=== PATIENT | female | born 1965 | race Caucasian/White ===

== ENCOUNTER → 2019-08-18 | Outpatient (CLI) | payer OTHER ==
[2019-08-18 11:35] VITALS: BP 121/77; PULSE 57; RESP 18; TEMP 97.8
--- NOTE | 2019-08-18 12:52 | P.HPOB ---
History of Present Illness H&P Date: 08/18/19 Chief Complaint: The patient is here for her routine gynecologic exam and ma mmogram. This is a 54-year-old G0 with an LMP of 2009. The patient is complaining of intermittent vulvar pruritus on the right side toward the posterior aspect of the vulva. She states she has noticed this about 4 months. She occasionally notices a clear piece of skin that comes off when she scratches. She denies any pain. She denies vaginal discharge or vaginal odor. She has been experiencing hot flashes over the past 2 years and these have been stable and mostly at night. She has also noticed infrequently a slight bulge in the vagina and feels like she has touched something coming to the vaginal opening. She has noticed this mostly when she has been doing heavy repetitive lifting at work and then she occasionally notices this when she gets home. Review of Systems She has gained about 20 pounds over the past 5 years. She denies respiratory, cardiac, or GI problems. Past Medical History Past Medical History: GERD/Reflux, Hypertension, Thyroid Disorder Additional Past Medical History / Comment(s): Hypothyroidism. 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 She has been amenorrheic since her ablation in 2009. 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 - Past Family History Father Family Medical History: Coronary Artery Disease (CAD), Diabetes Mellitus Sister(s) Family Medical History: Diabetes Mellitus Maternal Aunt Family Medical History: Cancer Additional Family Medical History / Comment(s): Breast cancer and leukemia Medications and Allergies Home Medications Medication Instructions Recorded Confirmed Type Levothyroxine Sodium [Synthroid] 25 mcg PO DAILY 08/18/19 08/18/19 History Lisinopril-Hctz 20-25 mg 1 tab PO DAILY 08/18/19 08/18/19 History [Zestoretic 20-25] Omeprazole [PriLOSEC] 40 mg PO DAILY 08/18/19 08/18/19 History Allergies Allergy/AdvReac Type Severity Reaction Status Date / Time No Known Allergies Allergy Unverified 08/18/19 11:27 Exam Vital Signs Temp Pulse Resp BP Pulse Ox 08/18/19 11:29 97.8 F 57 L 18 121/77 96 Intake and Output 08/17/19 08/18/19 08/18/19 22:59 06:59 14:59 Other: Weight 137.892 kg Height 5 feet 4-1/2 inches, weight 304 pounds, BMI 51.4. This is a well-developed well-nourished obese white female who is alert and oriented times 3 in no acute distress. HEENT: Within normal limits. NECK: Supple without mass or thyromegaly. CHEST AND LUNGS: Clear to auscultation. HEART: Regular rate and rhythm. BREASTS: Are without mass or discharge. AXILLARY EXAM: Negative for adenopathy. BACK: Negative for CVA tenderness. ABDOMEN: Soft, obese, nontender, without palpable masses. PELVIC EXAM: External genitalia reveals minimal atrophy. There is a lesion that is pale and is somewhat linear measuring approximately 2 cm x 0.4cm near the posterior aspect of the right labia majora. This is not raised and is nontender. There is no significant erythema and the area does not appear excoriated. Cervix and vagina appear normal. The cervix is above average in length and appears nulliparous. At rest there is a grade 2 cervical/uterine prolapse. With Valsalva the cervix approaches the introitus but does not quite reach the introitus. There is no unusual discharge. There is no evidence of cystocele or rectocele.. The uterus is midposition, nongravid size and nontender. There are no palpable adnexal masses or tenderness. RECTAL EXAM: The vaginal exam is negative for mass or tenderness and is negative for occult blood. EXTREMITIES: Nontender. IMPRESSION: 1. 54-year-old menopausal female status post endometrial ablation with mild vasomotor symptoms. 2. Grade 2.5 uterine prolapse with above average cervical length. Minimally symptomatic. 3. 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 This lesion is pruritic to the patient. Differential diagnosis will include vulvar dysplasia, vulvar hyperplasia and a chronic vulvitis. PLAN: 1. Pap smear was performed. 2. Self breast awareness was discussed with the patient. 3. Screening mammogram will be done today. 4. Osteoporosis prevention was discussed. I have stressed the importance of adequate calcium, vitamin D and regular exercise. Recommended amounts of calcium and vitamin D were also discussed. 5. The patient will make an appointment for vulvar biopsy to further evaluate the vulvar lesion. I have stressed the importance of having this done. 6. We have had a long discussion regarding the mild uterine prolapse and above average cervical length. At this time I do not feel surgical treatment is necessary. I have recommended that she try to avoid heavy repetitive lifting. We have discussed negative Valsalva exercises and she was given instructions on this. I have recommended that she try this at times when she notices vaginal pressure or evidence of prolapse. She was instructed to call if she thinks she is having worsening of symptoms. 7. She will return for vulvar biopsy and also in one year and as needed.
--- NOTE | 2019-08-19 11:20 | MM ---
Reason for exam: screening (asymptomatic). Last mammogram was performed 4 years and 10 months ago. History: Patient is postmenopausal and is nulliparous. Family history of breast cancer in maternal aunt at age 40. Physical Findings: A clinical breast exam by your physician is recommended on an annual basis and results should be correlated with mammographic findings. MG 3D Screening Mammo W/Cad Bilateral CC and MLO view(s) were taken. Prior study comparison: October 21, 2014, right breast MG diagnostic mammo RT w CAD. August 06, 2011, bilateral digital screening mammo w/CAD. There are scattered fibroglandular densities. There are benign appearing round calcifications bilaterally. There is chronic nodularity in the right breast. There is no discrete abnormality. Prominent benign left axillary lymph nodes. ASSESSMENT: Benign, BI-RAD 2 RECOMMENDATION: Routine screening mammogram of both breasts in 1 year.
--- NOTE | 2019-08-31 15:22 | P.PN ---
Progress Note - Text Progress Note Date: 08/31/19 OUTPATIENT FOLLOW-UP NOTE TEST(S)/RESULTS: test results from 08/18/2019 include negative Pap smear and benign mammogram. METHOD OF NOTIFICATION: the patient was notified by phone. PATIENT COMMENTS: the patient is happy to hear these results. DIAGNOSIS: negative Pap smear and benign mammogram. DISCUSSION: PLAN: the patient is to return in one year for her annual well woman exam. The patient has a vulvar biopsy scheduled for 09/08/2019.
== END | disposition home or self-care (01) ==
LOC: WWCWWP 10:33
PROVIDERS: ATTEND Obstetrics & Gynecology
DX: Z12.31 Encounter for screening mammogram for malignant neoplasm of breast (principal)
CPT/HCPCS: 77063; 77067

== ENCOUNTER → 2019-09-08 | Day surgery (SDC) | payer OTHER ==
--- NOTE | 2019-09-08 22:29 | WWPCN ---
[facility] - PROCEDURE NOTE DATE OF DICTATION AND DATE OF PROCEDURE: 09/08/2019 PRE-PROCEDURE DIAGNOSIS: Vulvar leukoplakia. POST-PROCEDURE DIAGNOSIS: Vulvar leukoplakia. PROCEDURE: Right vulvar biopsy. SURGEON: Dr. Liu. ANESTHESIA: Local anesthesia. BRIEF HISTORY AND INDICATIONS: This was a 54-year-old G0 with an LMP of 2009 who has been experiencing right posterior vulvar pruritus for approximately 5 months. She was found to have a 2.5 x 0.5 cm area of leukoplakia at the posterior aspect of the right vulva. This area was biopsied. DESCRIPTION OF THE PROCEDURE: The nature of the procedure and indication for the procedure were reviewed with the patient. We discussed possible risks associated with the procedure. After all of her questions were answered, the patient was placed in the lithotomy position. The area was prepped with Betadine solution. Approximately 2 mL of 1% lidocaine was used for local anesthesia. Following determination of adequate anesthesia, a cervical biopsy instrument was used to biopsy the center of the lesion. Silver nitrate sticks were used for hemostasis. An antibiotic ointment was applied. The patient tolerated the procedure well. Estimated blood loss was minimal. There were no complications. Discharge instructions were given to the patient. She was instructed to apply antibiotic ointment such as Neosporin twice a day until the site is healed. If blood is noted, she was instructed to apply pressure. She was instructed to call if she has persistent bleeding, unusual pain, fever or problems. Specimen sent included the single vulvar biopsy. Post-procedure vital signs were blood pressure 134/87, pulse 51, pulse oximeter 95%. MMODL / IJN: [id number] /
[2019-09-10 16:00] VITALS: BP 141/78; PULSE 50; RESP 18; TEMP 97.9
--- NOTE | 2019-09-14 18:16 | P.PN ---
Progress Note - Text Progress Note Date: 09/14/19 OUTPATIENT FOLLOW-UP NOTE TEST(S)/RESULTS: Vulvar biopsy pathology from 09/08/2019 shows squamous hyperplasia without inflammation. METHOD OF NOTIFICATION: The patient was notified by phone. PATIENT COMMENTS: The patient states she had minimal bleeding after the procedure and feels that it is healing well. She continues to have itching in the area. DIAGNOSIS: Benign vulvar biopsy showing squamous hyperplasia DISCUSSION: I have stressed the importance of not over washing and not using too much soap in the area. She will also try to avoid rubbing and scratching the area. I have also recommended wearing looser fitting clothing as well. PLAN: Kenalog 0.1% cream twice a day when necessary. She was instructed to call she's having problems. She was advised to return in one year for her annual well woman exam.
== END ==
LOC: WWCWWP 12:35
PROVIDERS: ATTEND Obstetrics & Gynecology
DX: N90.69 Other specified hypertrophy of vulva (principal)
CPT/HCPCS: 88305

== ENCOUNTER → 2021-08-07 | Outpatient (CLI) | payer OTHER ==
[2021-08-07 09:39] VITALS: BP 149/82; PULSE 61; RESP 17; TEMP 98
--- NOTE | 2021-08-07 10:30 | P.HPOB ---
History of Present Illness H&P Date: 08/07/21 Chief Complaint: The patient is here for her routine gynecologic exam and ma mmogram. This is a 55-year-old G0 with an LMP of 2009. The patient states she had COVID in August 2020. She was hospitalized for 10 days at that time. She states she has recovered. She states that she did have a menstrual period during her Covid illness last year. She has not had any bleeding since then. Review of Systems The patient has gained 11 pounds over the last year. She denies respiratory, cardiac, or G.I. problems. Past Medical History Past Medical History: GERD/Reflux, Hypertension, Renal Disease, Thyroid Disorder Additional Past Medical History / Comment(s): Hypothyroidism. Renal insufficiency after COVID 2020. 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 She has been amenorrheic since her ablation in 2009. History of Any Multi-Drug Resistant Organisms: None Reported Past Surgical History: Cholecystectomy, Tonsillectomy, Uterine Ablation Additional Past Surgical History / Comment(s): Colonoscopy 2013(next after 10yr). Upper endoscopy 2013. Past Psychological History: No Psychological Hx Reported Smoking Status: Never smoker Past Alcohol Use History: None Reported Past Drug Use History: None Reported Additional History: She has been since 1984. 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 - Past Family History Father Family Medical History: Coronary Artery Disease (CAD), Diabetes Mellitus Sister(s) Family Medical History: Diabetes Mellitus Maternal Aunt Family Medical History: Cancer Additional Family Medical History / Comment(s): Breast cancer and leukemia Medications and Allergies Home Medications Medication Instructions Recorded Confirmed Type Levothyroxine Sodium [Synthroid] 25 mcg PO DAILY 08/18/19 08/07/21 History Omeprazole [PriLOSEC] 40 mg PO DAILY 08/18/19 08/07/21 History Furosemide [Lasix] 20 mg PO DAILY 08/07/21 08/07/21 History amLODIPine BESYLATE 5 mg PO DAILY 08/07/21 08/07/21 History Allergies Allergy/AdvReac Type Severity Reaction Status Date / Time No Known Allergies Allergy Unverified 08/07/21 09:34 Exam Vital Signs Temp Pulse Resp BP Pulse Ox 08/07/21 09:36 98 F 61 17 149/82 97 Intake and Output 08/06/21 08/07/21 08/07/21 22:59 06:59 14:59 Other: Weight 142.882 kg Height 5 feet 4 inches, weight 315 pounds, BMI 54.1. This is a well-developed well-nourished obese white female who is alert and oriented times 3 in no acute distress. HEENT: Within normal limits. NECK: Supple without mass or thyromegaly. CHEST AND LUNGS: Clear to auscultation. HEART: Regular rate and rhythm. BREASTS: Are without mass or discharge. AXILLARY EXAM: Negative for adenopathy. BACK: Negative for CVA tenderness. ABDOMEN: Soft, obese, nontender, without palpable masses. PELVIC EXAM: Normal external genitalia with mild atrophy. There is a grade 2 uterine prolapse which seems to be related to a very long cervix. Cervix and vagina otherwise appear normal with mild atrophy. There is no unusual discharge. There is no other prolapse. The uterus is midposition, nongravid size and nontender. There are no palpable adnexal masses or tenderness. Bimanual examination is somewhat limited secondary to her size. RECTAL EXAM: Rectovaginal exam is negative for mass or tenderness and is negative for occult blood. EXTREMITIES: Nontender. IMPRESSION: 1. 55-year-old menopausal female with stable grade 2 uterine prolapse with above average cervical length. This is asymptomatic. 2. One episode of postmenopausal bleeding about 1 year ago. PLAN: 1. Pap smear was deferred since she had a normal one on 08/18/2019. 2. Self breast awareness was discussed with the patient. We have also discussed symptoms associated with inflammatory breast cancer. 3. Screening mammogram will be done today. 4. Because of the postmenopausal bleeding episode last year, we will plan on doing a pelvic ultrasound to look at her endometrial thickness. If endometrial thickening is noted, we will plan on having some type of endometrial sampling. The order slip was given to the patient for the ultrasound. 5. Osteoporosis prevention was discussed. I have stressed the importance of adequate calcium, vitamin D and regular exercise. Recommended amounts of calciu m and vitamin D were also discussed. 6. She has not received a Covid vaccination, but did have Covid in 2020. She understands the CDC recommendation is for vaccination. She will consider this 7. Conservative management for the uterine prolapse. She will call if problems. 8. She was advised to return in one year for her annual well woman exam.
--- NOTE | 2021-08-08 09:40 | MM ---
Reason for Exam: Screening (asymptomatic). Last mammogram was performed 2 year(s) and 0 month(s) ago. Patient History: Menarche at age 10. Patient has no children. Postmenopausal. Maternal aunt had breast cancer, age 40. Risk Values: Dior 5 year model risk: 1.4%. NCI Lifetime model risk: 8.7%. Prior Study Comparison: 08/06/2011 Bilateral Screening Mammogram, [facility]. 10/21/2014 Right Diagnostic Mammogram, [facility]. 08/18/2019 Bilateral Screening Mammogram, [facility]. Tissue Density: There are scattered fibroglandular densities. Findings: Analyzed By CAD. There is no suspicious group of microcalcifications or new suspicious mass in either breast. Overall Assessment: Negative, BI-RAD 1 Management: Screening Mammogram of both breasts in 1 year. A clinical breast exam by your physician is recommended on an annual basis and results should be correlated with mammographic findings. Electronically signed and approved by: Kieran Lowery M.D. Radiologis
== END ==
LOC: WWCWWP 09:15
PROVIDERS: ATTEND Obstetrics & Gynecology
DX: Z12.31 Encounter for screening mammogram for malignant neoplasm of breast (principal); Z01.419 Encounter for gynecological examination (general) (routine) without abnormal findings; I10 Essential (primary) hypertension; E03.9 Hypothyroidism, unspecified; Z80.3 Family history of malignant neoplasm of breast; K21.9 Gastro-esophageal reflux disease without esophagitis; Z79.899 Other long term (current) drug therapy; Z79.890 Hormone replacement therapy; Z78.0 Asymptomatic menopausal state
CPT/HCPCS: 77067

== ENCOUNTER → 2022-06-25 | Outpatient (CLI) | payer OTHER ==
--- NOTE | 2022-06-25 10:25 | XR ---
EXAMINATION TYPE: XR foot limited RT DATE OF EXAM: 06/25/2022 COMPARISON: NONE HISTORY: Pain TECHNIQUE: Two views are submitted. FINDINGS: The osseous structures are intact. There is no acute fracture or dislocation. Mild hypertrophic ar thropathy first MTP. Large plantar calcaneal spur.. IMPRESSION: 1. Large gap plantar calcaneal spur. 2. Mild arthropathy first MTP.
== END | disposition home or self-care (01) ==
LOC: RADXRMAIN 09:58
PROVIDERS: ATTEND Family Medicine
DX: M19.071 Primary osteoarthritis, right ankle and foot (principal); M77.31 Calcaneal spur, right foot

== ENCOUNTER → 2023-01-14 | Outpatient (CLI) | payer OTHER ==
[2023-01-14 11:28] VITALS: BP 157/83; PULSE 69; RESP 17; TEMP 98.5
--- NOTE | 2023-01-14 12:10 | P.HPOB ---
History of Present Illness H&P Date: 01/14/23 Chief Complaint: The patient is here for her routine gynecologic exam and ma mmogram. This is a 57-year-old G0 with an LNMP of 2009. She is status post endometrial ablation in 2009. She states she had minimal intermittent spotting after the ablation. She had an LMP of 2020 and has not had any bleeding from the vagina since then. She states she has had more hot flashes this year than in the past. She had a vulvar biopsy on 09/08/2019 showing squamous hyperplasia. She states she has not had any vulvar itching or problems since then. Review of Systems The patient has gained 18 pounds over the last year. She states she was up to 350 pounds, but has lost about 17 pounds since that time. She denies respiratory, cardiac, or G.I. problems. Past Medical History Past Medical History: GERD/Reflux, Hypertension, Renal Disease, Thyroid Disorder Additional Past Medical History / Comment(s): Hypothyroidism. Thyroid nodules. Renal insufficiency after COVID 2020. 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 She has been amenorrheic since her ablation in 2009. History of Any Multi-Drug Resistant Organisms: None Reported Past Surgical History: Cholecystectomy, Tonsillectomy, Uterine Ablation Additional Past Surgical History / Comment(s): Colonoscopy 2013(next after 10yr). Upper endoscopy 2013. Endometrial ablation 2009. Past Psychological History: No Psychological Hx Reported Smoking Status: Never smoker Past Alcohol Use History: None Reported Past Drug Use History: None Reported Additional History: She has been since 1984. 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 - Past Family History Father Family Medical History: Coronary Artery Disease (CAD), Diabetes Mellitus Sister(s) Family Medical History: Diabetes Mellitus Maternal Aunt Family Medical History: Cancer Additional Family Medical History / Comment(s): Breast cancer and leukemia Medications and Allergies Home Medications Medication Instructions Recorded Confirmed Type Levothyroxine Sodium [Synthroid] 25 mcg PO DAILY 08/18/19 01/14/23 History Omeprazole [PriLOSEC] 40 mg PO DAILY 08/18/19 01/14/23 History Furosemide [Lasix] 20 mg PO DAILY 08/07/21 01/14/23 History amLODIPine BESYLATE 5 mg PO DAILY 08/07/21 01/14/23 History Allergies Allergy/AdvReac Type Severity Reaction Status Date / Time No Known Allergies Allergy Unverified 01/14/23 11:15 Exam Vital Signs Temp Pulse Resp BP Pulse Ox 01/14/23 11:16 98.5 F 69 17 157/83 98 Intake and Output 01/13/23 01/14/23 01/14/23 22:59 06:59 14:59 Other: Weight 151.046 kg Height 5 feet 4 inches, weight 333 pounds, BMI 57.2. This is a well-developed well-nourished obese white female who is alert and oriented times 3 in no acute distress. HEENT: Within normal limits. NECK: Supple without mass or thyromegaly. CHEST AND LUNGS: Clear to auscultation. HEART: Regular rate and rhythm. BREASTS: Are without mass or discharge. AXILLARY EXAM: Negative for adenopathy. BACK: Negative for CVA tenderness. ABDOMEN: Soft, obese, nontender, without palpable masses. PELVIC EXAM: Normal external genitalia with mild atrophy. Cervix and vagina appear normal with mild atrophy. There is no unusual discharge. The cervix is unusually long and comes within approximately 3 cm of the vaginal opening which we will consider a grade 2 uterine prolapse. There is no other evidence of prolapse. The uterus is midposition, nongravid size and nontender. There are no palpable adnexal masses or tenderness. Bimanual examination is somewhat limited secondary to her size. RECTAL EXAM: Rectovaginal exam is negative for mass or tenderness and is negative for occult blood. EXTREMITIES: Nontender. IMPRESSION: 1. 57-year-old menopausal female status post endometrial ablation in 2009. She is now experiencing more vasomotor symptoms during the past year. 2. Grade 2 uterine prolapse with a very long cervix on exam. This is asymptomatic. PLAN: 1. Pap smear cotest was performed. 2. Self breast awareness was discussed with the patient. We have also discussed symptoms associated with inflammatory breast cancer. 3. Screening mammogram will be done today. 4. Osteoporosis prevention was discussed. I have stressed the importance of adequate calcium, vitamin D and regular exercise. Recommended amounts of calcium and vitamin D were also discussed. 5. She was instructed to call if she has any vaginal bleeding. 6. She will also call if she is having symptoms from her long cervix with uterine prolapse. 7. Weight control was discussed with the patient. She is considering bariatric surgery options. 8. She was advised to return in one year for her annual well woman exam and as needed.
--- NOTE | 2023-01-15 20:05 | MM ---
Reason for Exam: Screening (asymptomatic). Last mammogram was performed 1 year(s) and 5 month(s) ago. Patient History: Menarche at age 10. Patient has no children. Postmenopausal. Maternal aunt had breast cancer, age 40. Risk Values: Dior 5 year model risk: 1.5%. NCI Lifetime model risk: 8.3%. Prior Study Comparison: 10/21/2014 Right Diagnostic Mammogram, [facility]. 08/18/2019 Bilateral Screening Mammogram, [facility]. 08/07/2021 Bilateral MG screening mammo w CAD, [facility]. Tissue Density: There are scattered fibroglandular densities. Findings: Analyzed By CAD. Chronic nodularity on the left. There is no suspicious group of microcalcifications or new suspicious mass in either breast. Overall Assessment: Benign, BI-RAD 2 Management: Screening Mammogram of both breasts in 1 year. . Patient should continue monthly self-breast exams. A clinical breast exam by your physician is recommended on an annual basis. This exam should not preclude additional follow-up of suspicious palpable abnormalities. Note on Dior scores and lifetime risk: 1. A Dior score greater than 3% is considered moderate risk. If this is the case, consider specialist referral to assess eligibility for a risk reducing agent. 2. If overall lifetime risk for the development of breast cancer is 20% or higher, the patient may qualify for future screening with alternating mammogram and breast MRI. Electronically signed and approved by: Hank Thomson M.D. Radiologist
== END ==
LOC: WWCWWP 11:07
PROVIDERS: ATTEND Obstetrics & Gynecology
DX: Z12.31 Encounter for screening mammogram for malignant neoplasm of breast (principal); E03.9 Hypothyroidism, unspecified; I10 Essential (primary) hypertension; K21.9 Gastro-esophageal reflux disease without esophagitis; N81.4 Uterovaginal prolapse, unspecified; Z78.0 Asymptomatic menopausal state; Z79.890 Hormone replacement therapy; Z80.3 Family history of malignant neoplasm of breast; Z86.16 Personal history of COVID-19
CPT/HCPCS: 77063; 77067

== ENCOUNTER → 2023-04-29 | Outpatient (CLI) | payer OTHER ==
--- NOTE | 2023-04-29 21:32 | US ---
EXAMINATION TYPE: US thyroid st tissue head/neck DATE OF EXAM: 04/29/2023 COMPARISON: NONE CLINICAL INDICATION: Female, 57 years old with history of E04.2 NONTOXIC MULTINODULAR GOITER; GLAND SIZE: Right Lobe: 4.6 x 2.0 x 1.7 cm Overall Parenchyma: heterogenous Left Lobe: 4.4 x 1.8 x 2.0 cm Overall Parenchyma: heterogenous Isthmus Thickness: 0.3 cm NODULES RIGHT: # of nodules measured on right: 1 1. 1.0 X 0.6 x 0.8 cm, mid, solid or almost completely solid, hyperechoic TR3 nodule, which is wide r than tall, with smooth margins, without echogenic foci. Prior size: no previous LEFT: # of nodules measured on left: 2 1. 2.3 X 1.7 x 2.3 cm, mid, solid or almost completely solid, isoechoic TR 3 nodule, which is wider than tall, with smooth margins, without echogenic foci. Prior size: no previous 2. 0.9 X 0.6 x 0.8 cm, upper mid, solid or almost completely solid, hyperechoic TR 3 nodule, which is wider than tall, with ill-defined margins, without echogenic foci. Prior size: no previous ISTHMUS: # of nodules measured in the isthmus: 0 [employer] Operator notes: Bilateral neck scanned, right neck lymph node 2.5 x 1.1 x 1.3cm, left neck lymph n ode 2.5 x 0.9 x 1.4cm . IMPRESSION: Bilateral solid TR3 thyroid nodules measuring up to 1 cm on the right and 2.3 cm and 9 mm on the left . Correlate for multinodular goiter. Appropriate follow-up recommended. 2017 ACR TI-RADS LEVEL: TR-RADS 3 - Mildly Suspicious: Follow if > 1.5 cm, FNA if > 2.5 cm *Highest TI-RADS level nodule reported
== END | disposition home or self-care (01) ==
LOC: RADUSWWP 11:57
PROVIDERS: ATTEND Internal Medicine Endocrinology, Diabetes & Metabolism
DX: E04.2 Nontoxic multinodular goiter (principal)
CPT/HCPCS: 76536

== ENCOUNTER → 2024-04-27 | Outpatient (CLI) | payer OTHER, MEDICARE ==
--- NOTE | 2024-04-27 10:57 | US ---
EXAMINATION TYPE: US thyroid st tissue head/neck DATE OF EXAM: 04/27/2024 COMPARISON: US 04/29/2023 CLINICAL INDICATION: Female, 58 years old with history of E04.2 NONTOXIC MULTINODULAR GOITER; Goiter TECHNIQUE: Grayscale and color Doppler imaging of the thyroid gland. FINDINGS: GLAND SIZE: Right Lobe: 5.3 x 1.9 x 2.2 cm Overall Parenchyma: heterogeneous Left Lobe: 5.3 x 1.8 x 2.1 cm Overall Parenchyma: heterogeneous Isthmus Thickness: 0.28 cm NODULES RIGHT: # of nodules measured on right: 2 1. 1.3 X 1.0 x 0.7 cm, mid mid, solid or almost completely solid, isoechoic nodule, which is wider than tall, with smooth margins, without echogenic foci. Prior size: 1.0 x 0.6 x 0.8 cm TR3 lesion. 2. 1.4 X 1.4 x 0.8 cm, upper-mid medial, solid or almost completely solid, hypoechoic nodule, whic h is wider than tall, with ill-defined margins, without echogenic foci. TR3 lesion. Prior size: Not seen on prior LEFT: # of nodules measured on left: 2 1. 2.9 X 2.6 x 1.9 cm, mid-inf , solid or almost completely solid, isoechoic nodule, which is wider than tall, with ill-defined margins, without echogenic foci. TR3 lesion. Prior size: 2.3 x 1.7 x 2.3 cm 2. 1.0 X 0.9 x 1.0 cm, upper mid, solid or almost completely solid, hyperechoic nodule, which is t aller than wide, with ill-defined margins, without echogenic foci. TR3 lesion. Prior size: 0.9 x 0.6 x 0.8 cm ISTHMUS: # of nodules measured in the isthmus: 0 Bilateral neck scanned, Hypoechoic area with hyperechoic center seen right neck: 2.2 x 1.1 x 0.7 cm. Hypoechoic area with hyperechoic center seen left neck: 2.1 x 1.3 x 0.5 IMPRESSION: As above. Continued imaging surveillance is advised. 2017 ACR TI-RADS LEVEL: TI-RADS 3 - Mildly Suspicious: Follow if > 1.5 cm, FNA if > 2.5 cm *Highest TI-RADS level nodule reported [email or web address] [email or web address], , 04/27/2024 10:54 AM
== END | disposition home or self-care (01) ==
LOC: RADUSWWP 10:10
PROVIDERS: ATTEND Internal Medicine Endocrinology, Diabetes & Metabolism
DX: E04.2 Nontoxic multinodular goiter (principal)
CPT/HCPCS: 76536

== ENCOUNTER → 2024-05-11 | Outpatient (CLI) | payer OTHER, MEDICARE ==
--- NOTE | 2024-05-11 07:34 | US ---
EXAMINATION TYPE: US liver DATE OF EXAM: 05/11/2024 COMPARISON: NONE CLINICAL INDICATION: Female, 58 years old with history of R74.8 ABNORMAL LEVELS OF SERUM ENZYMES; Fatuma vated LFT's, GB surgically absent TECHNIQUE: Grayscale and color Doppler imaging of the right upper quadrant was performed. FINDINGS: EXAM MEASUREMENTS: Liver Length: 20.3 cm CBD: 0.6 cm Right Kidney: 9.9 x 4.8 x 4.7 cm DATABASE CONSULTANT NOTES: Severely, morbidly obese pt- difficult to penetrate Pancreas: Limited views appeared wnl, difficult to visualize due to large pt body habitus Liver: Enlarged, heterogeneous, difficult to penetrate Gallbladder: Surgically absent Evidence for sonographic Garcia's sign: No CBD: wnl, post mary kate Right Kidney: No evidence of hydro, lower pole gassed out Suboptimal study. Visualized liver is heterogeneously hyperechoic. This limits evaluation for focal m asses. No ascites is seen. IMPRESSION: Hepatomegaly with heterogeneous hyperechoic liver consistent with diffuse fatty infiltrative hepatoce llular disease. No ascites or biliary dilatation noted. [facility] [address], , 05/11/2024 7:32 AM
== END | disposition home or self-care (01) ==
LOC: RADUSWWP 06:59
PROVIDERS: ATTEND Family Medicine
DX: R16.0 Hepatomegaly, not elsewhere classified (principal); R74.8 Abnormal levels of other serum enzymes; K76.89 Other specified diseases of liver
CPT/HCPCS: 76705